=== PATIENT | male | born 1970 | race Two or more races ===

== ENCOUNTER 2016-09-04 12:38 | Emergency (ER) | payer SELFPAY ==
[~2016-09-04] VITALS: Ht 170.2 cm; Wt 81.6 kg
--- NOTE | 2016-09-04 12:50 | NUR ---
pt denies loc after falling.
[2016-09-04] MEDS ORDERED: HYDROCODONE/APAP 10-325 MG TABLET PO ONE (13:00)
[2016-09-04] MEDS ORDERED: HYDROCODONE/APAP 10-325 MG TABLET ONE (13:02)
--- NOTE | 2016-09-04 13:48 | NUR ---
pt back from xray, states pain is 6/10 in RLE. offered to provide more pain medication, pt state will wait loger.
--- NOTE | 2016-09-04 14:05 | NUR ---
Crutches dispensed. Pt instructed on proper use of crutches. Patient able to demonstrate correct use of crutches.
[2016-09-04 14:06] VITALS: BP 133/72
== END 2016-09-04 14:07 | disposition home or self-care (01) ==
LOC: ER 12:40
DX: S80.11XA Contusion of right lower leg, initial encounter (principal); M54.2 Cervicalgia; M54.5 Low back pain; W11.XXXA Fall on and from ladder, initial encounter; Y93.89 Activity, other specified; Y99.8 Other external cause status; Y92.89 Other specified places as the place of occurrence of the external cause
CPT/HCPCS: 71010; 72050; 72110; 73590; 99284; A4663